=== PATIENT | female | born 1985 | race Asian ===

== ENCOUNTER 2017-07-14 13:43 | Emergency (ER) | payer OTHER, SELFPAY ==
[~2017-07-14] VITALS: Ht 152.4 cm; Wt 54.4 kg
[~2017-07-14 13:43] MED LIST: MACROBID100 MG ORAL; NKM
[2017-07-14 14:48] VITALS: BP 124/86
--- NOTE | 2017-07-14 15:11 | Emergency Room Report ---
History of Present Illness General Chief Complaint: Upper Extremity Injury Source: Patient Present Illness HPI 31-year-old female presents emergency department complaining of continued 6/10 in severity pain to the posterior right elbow after hitting elbow on a door almost 3 weeks ago. Patient reports pain is exacerbated upon movement and ADLs. Patient denies erythema, increased temperature palpation, open wounds, fevers, chills or previous injury to this extremity. Denies numbness tingling or loss of sensation or gross motor movements of the extremities, incontinence of bowel or bladder. Denies CP, Palpitations, LOC, AMS, dizziness, Changes in Vision, Sensation, paresthesias, or a sudden severe headache. Allergies: Coded Allergies: No Known Allergies (Unverified , 05/20/14) Patient History Past Medical History: see triage record Past Surgical History: none Pertinent Family History: none Now: No Reviewed Nursing Documentation: PMH: Agreed, PSxH: Agreed Nursing Documentation-PMH Past Medical History: No Stated History Review of Systems All Other Systems: negative except mentioned in HPI Physical Exam Vital Signs Date Time Temp Pulse Resp B/P (MAP) Pulse Ox O2 Delivery O2 Flow Rate FiO2 07/14/17 13:50 98.2 85 16 128/78 99 Room Air Sp02 EP Interpretation: reviewed, normal General Appearance: no apparent distress, alert, GCS 15, non-toxic Head: normocephalic, atraumatic Eyes: bilateral eye normal inspection, bilateral eye PERRL ENT: hearing grossly normal, normal voice Neck: full range of motion Respiratory: lungs clear, normal breath sounds, speaking full sentences Cardiovascular #1: regular rate, rhythm, normal capillary refill Cardiovascular #2: 2+ radial (R), 2+ radial (L) Musculoskeletal: back normal, gait/station normal, normal range of motion, tender - TTP to the lateral right elbow and the brachioradialis area, no swelling, no bruising, no obvious deformity, FROM. Neurologic: alert, oriented x3, responsive, motor strength/tone normal, sensory intact, speech normal Skin: normal color, no rash, warm/dry, well hydrated Medical Decision Making PA Attestation Dr. Wong is my supervising Physician whom patient management has been discussed with. Diagnostic Impression: Primary Impression: Contusion, elbow Qualified Codes: S50.01XA - Contusion of right elbow, initial encounter Additional Impression: Tendonitis ER Course 31-year-old female presents emergency department complaining of continued 6/10 in severity pain to the posterior right elbow after hitting elbow on a door almost 3 weeks ago. Patient reports pain is exacerbated upon movement and ADLs. Patient denies erythema, increased temperature palpation, open wounds, fevers, chills or previous injury to this extremity. Denies numbness tingling or loss of sensation or gross motor movements of the extremities, incontinence of bowel or bladder. Denies CP, Palpitations, LOC, AMS, dizziness, Changes in Vision, Sensation, paresthesias, or a sudden severe headache. Ddx considered but are not limited to Fracture, dislocation, contusion, Sprain/ Strain/Spasm, tendonitis Vital signs: are WNL, pt. is afebrile H&PE are most consistent with musculoskeletal injury will perform imaging to r/ o fractures/dislocations. ORDERS: - X-ray Right elbow. ED INTERVENTIONS: - d/w pt. results of her imaging. d/w pt. conservative treatment, and to follow up with a primary care provider. pt given a list of primary care clinics for follow up. d/w pt. to return to the ED with worsening or new symptoms. - Rommel wrap is applied to the right elbow by invasive cardiovascular technologist, pt. remains NVI. DISCHARGE: At this time pt. is stable for d/c to home. Will provide printed patient care instructions, and any necessary prescriptions. Care plan and follow up instructions have been discussed with the patient prior to discharge. Other X-Ray Diagnostic Results Other X-Ray Diagnostic Results : X-Ray ordered: Right Elbow # of Views/Limited Vs Complete: 3 View Indication: Pain EP Interpretation: Yes VARINDER Xray: Interpretation reviewed, by supervising MD, and agrees with findings. Interpretation: no dislocation, no soft tissue swelling, no fractures Impression: No acute disease Electronically Signed by: Shraddha Pineda PA-C Last Vital Signs Date Time Temp Pulse Resp B/P (MAP) Pulse Ox O2 Delivery O2 Flow Rate FiO2 07/14/17 14:48 98.4 81 14 124/86 100 Room Air Disposition: HOME, SELF-CARE Condition: Stable Scripts Ibuprofen* (MOTRIN*) 600 Mg Tablet 600 MG ORAL THREE TIMES A DAY, #30 TAB 0 Refills Prov: Shraddha Pineda 07/14/17 Patient Instructions: Elbow Contusion Additional Instructions: Take medications as directed. Follow up with a Primary Care Provider in 3-5 days, even if your symptoms have resolved. --Please review list of primary care clinics, if you do not already have a primary care provider Return sooner to ED if new symptoms occur, or current symptoms become worse. - Please note that this Emergency Department Report was dictated using [employer] technology software, occasionally this can lead to erroneous entry secondary to interpretation by the dictation equipment. Shraddha Pineda Jul 14, 2017 15:11
[2017-07-14] MEDS ORDERED: IBUPROFEN600 MG ORAL (15:24)
[2017-07-14 15:36] VITALS: BP 124/86
--- NOTE | 2017-07-14 15:47 | Diagnostic Imaging Report ---
Indications:PAIN Technique: Three or 4 views of the elbow Comparison: None Findings:Acute fractures or dislocations. Normal bony alignment. No joint effusion. Joint spaces are preserved. No radiopaque foreign body Impression:Negative
== END 2017-07-14 15:36 | disposition home or self-care (01) ==
LOC: EMR 15:30
DX: S50.01XA Contusion of right elbow, initial encounter (principal); W22.8XXA Striking against or struck by other objects, initial encounter; Y92.89 Other specified places as the place of occurrence of the external cause; M77.8 Other enthesopathies, not elsewhere classified
CPT/HCPCS: 99283

== ENCOUNTER 2017-08-04 13:42 | Emergency (ER) | payer OTHER ==
[~2017-08-04] VITALS: Ht 152.4 cm; Wt 53.1 kg
[~2017-08-04 13:42] MED LIST changes: +IBUPROFEN600 MG ORAL
[2017-08-04] MEDS ORDERED: NAPROXEN500 M2 ORAL (14:51)
[2017-08-04 14:55] VITALS: BP 127/84
--- NOTE | 2017-08-04 17:42 | Emergency Room Report ---
History of Present Illness General Chief Complaint: Pain Source: Patient Present Illness HPI Patient is a 31-year-old female presenting for right elbow pain. She states that this began approximately one month ago. She was seen in this emergency department 2 weeks prior and had an elbow x-ray which was unremarkable. She is unsure if she ever injured the elbow. She states that she was using Motrin which helped with the pain. She then ran out and pain returned. Pain is now a 7/10 dull ache and does not radiate. Worse with touch and to movement. She denies any numbness or tingling. She denies any other symptoms Allergies: Coded Allergies: No Known Allergies (Unverified , 05/20/14) Patient History Past Medical History: see triage record Pertinent Family History: none Last Menstrual Period: 07/09/17 Now: No Reviewed Nursing Documentation: PMH: Agreed, PSxH: Agreed Nursing Documentation-PMH Past Medical History: No Stated History Review of Systems All Other Systems: negative except mentioned in HPI Physical Exam Vital Signs Date Time Temp Pulse Resp B/P (MAP) Pulse Ox O2 Delivery O2 Flow Rate FiO2 08/04/17 14:06 98.8 93 16 112/78 99 Room Air Sp02 EP Interpretation: reviewed, normal General Appearance: no apparent distress, alert, GCS 15, non-toxic Head: normocephalic, atraumatic Eyes: bilateral eye normal inspection, bilateral eye PERRL Musculoskeletal: normal inspection, normal range of motion, tender - TTP over the R lateral elbow Neurologic: alert, oriented x3, responsive, motor strength/tone normal, sensory intact, speech normal Psychiatric: judgement/insight normal, memory normal, mood/affect normal, no suicidal/homicidal ideation Skin: normal color, no rash, warm/dry, well hydrated Procedures Splinting Splinting : Consent: Verbal Location: R arm Pre-Made Type: sling Splint: Pre-Proc Neuro Vasc Exam: normal Post-Proc Neuro Vasc Exam: normal Patient Tolerated: Well Complications: None Medical Decision Making PA Attestation Dr. Reyes is my supervising physician. Patient management was discussed with my supervising physician Diagnostic Impression: Primary Impression: Elbow pain, right ER Course Patient is a 31-year-old female presenting for right elbow pain. Ddx considered include but not limited to sprain/strain, fracture, contusion PE: NAD Right elbow: Full active range of motion is intact. No deformity. No edema. There is tenderness to palpation over the lateral aspect of the proximal radius. Previous x-ray of the elbow was unremarkable. A sling was placed and the patient is given prescription for naproxen. She will followup with her primary doctor. ER precautions are given Last Vital Signs Date Time Temp Pulse Resp B/P (MAP) Pulse Ox O2 Delivery O2 Flow Rate FiO2 08/04/17 14:55 98.4 77 18 127/84 100 Room Air Status: improved Disposition: HOME, SELF-CARE Condition: Improved Scripts Naproxen* (NAPROXEN*) 500 Mg Tablet 500 MG ORAL TWICE A WEEK, #30 TAB 0 Refills Prov: MEAGAN NUNEZ 08/04/17 Patient Instructions: Doronusion, RICE for Routine Care of Injuries Additional Instructions: I discussed my findings with the patient. All questions and concerns have been answered. Treatment and medication compliance have been addressed. I advised the patient that they need to follow up with PMD in 3-5 days. Return to ED if pain remains or worsens, numbness or tingling occurs, new rash is noticed, fever is noticed, or if needed for any reason. Patient verbalized understanding of discharge instructions. MEAGAN NUNEZ Aug 04, 2017 17:42
== END 2017-08-04 14:55 | disposition home or self-care (01) ==
LOC: EMR 14:20
DX: M25.521 Pain in right elbow (principal)
CPT/HCPCS: 29240; 99283

== ENCOUNTER 2018-03-06 15:06 | Emergency (ER) | payer MEDICAID, OTHER ==
[~2018-03-06] VITALS: Ht 152.4 cm; Wt 51.3 kg
[~2018-03-06 15:06] MED LIST changes: +NAPROXEN500 M2 ORAL
[2018-03-06] MEDS ORDERED: Acetaminophen 500mg (ES) tab ORAL ONE (15:45)
[2018-03-06 15:49] LABS: APPEARANCE,URINE CLEAR; BILIRUBIN, URINE NEGATIVE (NEGATIVE); COLOR,URINE PALE YELLOW; GLUCOSE, URINE (UA) NEGATIVE (NEGATIVE); KETONES,URINE NEGATIVE (NEGATIVE); LEUKOCYTE ESTERASE ,URINE 2+ (NEGATIVE); NITRITE,URINE NEGATIVE (NEGATIVE); PH,URINE 6 (4.5-8.0); PROTEIN,URINE NEGATIVE (NEGATIVE); UROBILINOGEN,URINE NORMAL MG/DL (0.0-1.0)
--- NOTE | 2018-03-06 15:56 | Emergency Room Report ---
History of Present Illness General Chief Complaint: Vaginal Source: Patient Present Illness HPI 32-year-old female patient presents to ER complaining of vaginal bleeding intermittently for the past 3 weeks.. Reports her last menstrual period was on February 06, states that one week after her last menstrual she began bleeding intermittently for a week, states it then stopped for a week and then began again 1 week ago. Denies passages clots. Denies hematuria or dysuria. Denies discharge or rash. Denies abdominal pain or vomiting. Denies fever, chest pain , shortness of breath. Denies diarrhea. Reports that she was previously on Depo shot provided to her in November. Reports not on any control medications since that time. Reports sexually active with her boyfriend, denies concern for STI. patient unsure of status. denies syncope. , reports had 3 abortions, reports 1 full term without complications. Denies trauma. Complains of intermittent back pain during this time. Allergies: Coded Allergies: No Known Allergies (Unverified , 05/20/14) Patient History Past Medical History: see triage record Last Menstrual Period: FEBRUARY 06 Reviewed Nursing Documentation: PMH: Agreed; PSxH: Agreed Nursing Documentation-PMH Past Medical History: No Stated History Review of Systems All Other Systems: negative except mentioned in HPI Physical Exam Vital Signs Date Time Temp Pulse Resp B/P (MAP) Pulse Ox O2 Delivery O2 Flow Rate FiO2 03/06/18 15:16 98.7 83 18 118/83 98 Room Air 98.8 Sp02 EP Interpretation: reviewed, normal General Appearance: well appearing, no apparent distress, alert, GCS 15, non- toxic Head: normocephalic, atraumatic Eyes: bilateral eye normal inspection, bilateral eye PERRL ENT: hearing grossly normal, normal pharynx, no angioedema, normal voice, uvula midline, moist mucus membranes Neck: full range of motion Respiratory: lungs clear, normal breath sounds, no rhonchi, no respiratory distress, no accessory muscle use, no wheezing, speaking full sentences Cardiovascular #1: regular rate, rhythm, no edema Gastrointestinal: non tender, soft, no mass, non-distended, no guarding, no rebound Genitourinary: no CVA tenderness, deferred Musculoskeletal: back normal, digits/nails normal, gait/station normal, normal range of motion, non-tender Neurologic: alert, oriented x3, responsive, motor strength/tone normal, sensory intact Psychiatric: mood/affect normal Skin: no rash Medical Decision Making PA Attestation Dr. Cleary is my supervising Physician whom patient management has been discussed with. Diagnostic Impression: Primary Impression: Dysfunctional uterine bleeding Additional Impression: UTI (urinary tract infection) ER Course Pt presents to ED c/o vaginal bleeding. DDX considered but are not limited to threatened , incomplete , , fibroids, UTI, endometriosis, dysfunctional uterine bleeding, torsion , ovarian cyst. VITAL SIGNS are WNL, patient is afebrile Ordered CBC, CMP, Type and Screen, UA, UCG, bHCG, IV NS and pelvic US. Tylenol for pain control. ER COURSE: Patient resting comfortably, in no acute distress, nontoxic appearing. Patient reports pain symptoms resolved since onset. CBC and CMP unremarkable, hemoglobin within normal limits, no signs or symptoms of anemia, patient hemodynamically stable. UA results doesn't for leukocyte esterase and WBCs, will treat for UTI. Back pain likely related to UTI. Urine negative BetaHCG <1. Patient not . Pelvic ultrasound normal per hearing health technician, unremarkable per radiologist. No fibroids or other underlying pathology. Bleeding possibly related to recent discontinuation of control medication other underlying etiology, needs further evaluation as outpatient. Needs follow-up with [facility] TELE[facility]ION [facility]AL CLERK for further treatment and referral. Discuss use of oral contraceptive medications. patient is stable for outpatient follow-up and evaluation. Patient with contact information for free or low cost health clinics. Informed patient to take Tylenol only for pain symptoms, do not take Motrin/ Ibuprofen. F/u with OBGYN in 48 hours. DISCHARGE: -Rx provided for Tylenol for pain -Rx provided for Keflex At this time pt. is stable for d/c to home. At this time patient is resting comfortably, in no acute distress, nontoxic appearing, smiling and talking without difficulty. Will provide printed patient care instructions, and any necessary prescriptions. Patient instructed to follow with OBGYN for further treatment and referral as needed. Care plan and follow up instructions have been discussed with the patient prior to discharge. Patient reports understanding and agreement to treatment plan. Patient questions asked and answered. ER precautions given, patient instructed to return to ER immediately for any new or worsening of symptoms. - Please note that this Emergency Department Report was dictated using [email or web address] technology software, occasionally this can lead to erroneous entry secondary to interpretation by the dictation equipment. Labs Test 03/06/18 15:30 03/06/18 16:10 Urine Color Pale yellow Urine Appearance Clear Urine pH 6 (4.5-8.0) Urine Specific [place] 1.020 (1.005-1.035) Urine Protein Negative (NEGATIVE) Urine Glucose (UA) Negative (NEGATIVE) Urine Ketones Negative (NEGATIVE) Urine Occult Blood 3+ (NEGATIVE) Urine Nitrite Negative (NEGATIVE) Urine Bilirubin Negative (NEGATIVE) Urine Urobilinogen Normal MG/DL (0.0-1.0) Urine Leukocyte Esterase 2+ (NEGATIVE) Urine RBC 2-4 /HPF (0 - 2) Urine WBC 5-10 /HPF (0 - 2) Urine Squamous Epithelial Cells Moderate /LPF (NONE/OCC) Urine Bacteria Few /HPF (NONE) Urine HCG, Qualitative Negative (NEGATIVE) White Blood Count 7.8 K/UL (4.8-10.8) Red Blood Count 4.69 M/UL (4.20-5.40) Hemoglobin 14.3 G/DL (12.0-16.0) Hematocrit 42.6 % (37.0-47.0) Mean Corpuscular Volume 91 FL (80-99) Mean Corpuscular Hemoglobin 30.4 PG (27.0-31.0) Mean Corpuscular Hemoglobin Concent 33.5 G/DL (32.0-36.0) Red Cell Distribution Width 11.4 % (11.6-14.8) Platelet Count 200 K/UL (150-450) Mean Platelet Volume 7.3 FL (6.5-10.1) Neutrophils (%) (Auto) 60.1 % (45.0-75.0) Lymphocytes (%) (Auto) 30.7 % (20.0-45.0) Monocytes (%) (Auto) 6.6 % (1.0-10.0) Eosinophils (%) (Auto) 1.6 % (0.0-3.0) Basophils (%) (Auto) 0.9 % (0.0-2.0) Sodium Level 141 MMOL/L (136-145) Potassium Level 4.2 MMOL/L (3.5-5.1) Chloride Level 104 MMOL/L (98-107) Carbon Dioxide Level 28 MMOL/L (21-32) Anion Gap 9 mmol/L (5-15) Blood Urea Nitrogen 13 mg/dL (7-18) Creatinine 0.7 MG/DL (0.55-1.30) Estimat Glomerular Filtration Rate > 60 mL/min (>60) Glucose Level 99 MG/DL (74-106) Calcium Level 9.2 MG/DL (8.5-10.1) Total Bilirubin 0.3 MG/DL (0.2-1.0) Aspartate Amino Transf (AST/SGOT) 18 U/L (15-37) Alanine Aminotransferase (ALT/SGPT) 25 U/L (12-78) Alkaline Phosphatase 74 U/L (46-116) Total Protein 7.9 G/DL (6.4-8.2) Albumin 4.1 G/DL (3.4-5.0) Globulin 3.8 g/dL Albumin/Globulin Ratio 1.1 (1.0-2.7) Lipase 166 U/L (73-393) Human Chorionic Gonadotropin, Quant < 1 mIU/mL (1-6) CT/MRI/US Diagnostic Results CT/MRI/US Diagnostic Results : Imaging Test Ordered: Pelvic US Impression Hypoechoic area in the anterior myometrium, of uncertain significance but probably representing some focal fluid Otherwise unremarkable Last Vital Signs Date Time Temp Pulse Resp B/P (MAP) Pulse Ox O2 Delivery O2 Flow Rate FiO2 03/06/18 15:16 98.7 83 18 118/83 98 Room Air 98.8 Disposition: HOME, SELF-CARE Condition: Stable Scripts Acetaminophen* (TYLENOL EXTRA STRENGTH*) 500 Mg Tablet 500 MG ORAL Q8H PRN for Prn Headache/Temp > 101, #30 TAB 0 Refills Prov: Mahamed Landry P.A. 03/06/18 Cephalexin* (KEFLEX*) 500 Mg Capsule 500 MG ORAL EVERY 12 HOURS, #14 CAP 0 Refills Prov: Mahamed Landry P.A. 03/06/18 Patient Instructions: Dysfunctional Uterine Bleeding, Urinary Tract Infection, [id number] Additional Instructions: Followup with OBGYN in 1-2 days. Take medications as directed. Drink plenty of fluids. Patient questions asked and answered. ER precautions given, patient instructed to return to ER immediately for any new or worsening of symptoms including but not limited to chest pain, SOB, intractable vomiting, profuse vaginal bleeding, abdominal pain. Mahamed Landry Mar 06, 2018 15:56
[2018-03-06 16:30] VITALS: BP 118/83
[2018-03-06 16:36] LABS: BASOPHILS % (AUTO) 0.9 % (0.0-2.0); EOSINOPHILS % (AUTO) 1.6 % (0.0-3.0); HEMATOCRIT 42.6 % (37.0-47.0); HEMOGLOBIN 14.3 G/DL (12.0-16.0); LYMPHOCYTES % (AUTO) 30.7 % (20.0-45.0); MEAN CORPUSCULAR VOLUME 91 FL (80-99); MONOCYTES % (AUTO) 6.6 % (1.0-10.0); NEUTROPHILS % (AUTO) 60.1 % (45.0-75.0); PLATELET COUNT 200 K/UL (150-450); RED BLOOD COUNT 4.69 M/UL (4.20-5.40); RED CELL DISTRIBUTION WIDTH 11.4 % (11.6-14.8); WHITE BLOOD COUNT 7.8 K/UL (4.8-10.8)
[2018-03-06 16:42] LABS: ANION GAP 9 mmol/L (5-15); BLOOD UREA NITROGEN 13 mg/dL (7-18); CALCIUM 9.2 MG/DL (8.5-10.1); CARBON DIOXIDE 28 MMOL/L (21-32); CHLORIDE 104 MMOL/L (98-107); CREATININE 0.7 MG/DL (0.55-1.30); POTASSIUM 4.2 MMOL/L (3.5-5.1); SODIUM 141 MMOL/L (136-145)
[2018-03-06 16:47] LABS: ALANINE AMINOTRANSFERASE 25 U/L (12-78); ALBUMIN 4.1 G/DL (3.4-5.0); ALBUMIN/GLOBULIN RATIO 1.1 (1.0-2.7); ALKALINE PHOSPHATASE 74 U/L (46-116); ASPARTATE AMINO TRANSFERASE 18 U/L (15-37); BILIRUBIN,TOTAL 0.3 MG/DL (0.2-1.0)
[2018-03-06] MEDS ORDERED: TYLENOL EXTRA500 MG ORAL (17:29)
[2018-03-06] MEDS ORDERED: CEPHALEXIN500 MG ORAL (17:29)
--- NOTE | 2018-03-06 18:07 | Diagnostic Imaging Report ---
Indication: Pelvic pain. Likely vaginal bleeding. Negative test Technique: Transabdominal and transvaginal images Comparison: 06/09/2014 Findings: Uterus measures 11.5 cm in length by 3.8 cm AP. Endometrium measures 8 mm thick. Unusual linear hypoechoic area seen in the anterior aspect of the uterine myometrium, fairly superficial. No other myometrial abnormality. Right ovary measures 3.3 cm in length. Left ovary measures 3.2 cm in length. No adnexal mass. No free cul-de-sac fluid Impression: Hypoechoic area in the anterior myometrium, of uncertain significance but probably representing some focal fluid Otherwise unremarkable
[2018-03-06 19:17] VITALS: BP 118/83
== END 2018-03-06 18:30 | disposition home or self-care (01) ==
LOC: EMR 16:01
DX: N93.8 Other specified abnormal uterine and vaginal bleeding (principal); N39.0 Urinary tract infection, site not specified
CPT/HCPCS: 36415; 76856; 80053; 81003; 81025; 83690; 84702; 85025; 96360; 99284

== ENCOUNTER 2018-11-23 15:27 | Emergency (ER) | payer MEDICAID, OTHER ==
[~2018-11-23] VITALS: Ht 152.4 cm; Wt 52.2 kg
[~2018-11-23 15:27] MED LIST changes: +CEPHALEXIN500 MG ORAL; +TYLENOL EXTRA500 MG ORAL
[2018-11-23] MEDS ORDERED: NKM (15:36)
--- NOTE | 2018-11-23 16:24 | Emergency Room Report ---
History of Present Illness General Chief Complaint: Lower Extremity Injury Source: Patient Present Illness HPI 32-year-old female presents emergency department complaining of 7 out of 10 in severity localized right knee pain 10 days. Patient also reports some clicking with bending of her knee. Patient denies appreciable trauma or fall. Patient states that she has a 2-year-old baby that she is constantly tearing and states that she lives up several flights of stairs. Patient states that she did mention her symptoms to her doctor who stated that maybe her symptoms may be attributed to recently receiving control injection approximately 3 months ago. Patient denies erythema, swelling, fevers, chills or history of STI. Allergies: Coded Allergies: No Known Allergies (Unverified , 05/20/14) Patient History Past Medical History: see triage record Past Surgical History: none Pertinent Family History: none Now: No Reviewed Nursing Documentation: PMH: Agreed; PSxH: Agreed Nursing Documentation-PMH Past Medical History: No Stated History Review of Systems All Other Systems: negative except mentioned in HPI Physical Exam Vital Signs Date Time Temp Pulse Resp B/P (MAP) Pulse Ox O2 Delivery O2 Flow Rate FiO2 11/23/18 15:31 98.4 97 16 132/90 98 Room Air Sp02 EP Interpretation: reviewed, normal General Appearance: no apparent distress, alert, GCS 15, non-toxic Head: normocephalic, atraumatic Eyes: bilateral eye normal inspection, bilateral eye PERRL ENT: hearing grossly normal, normal voice Neck: full range of motion Respiratory: lungs clear, normal breath sounds, speaking full sentences Cardiovascular #1: regular rate, rhythm, normal capillary refill Cardiovascular #2: 2+ dorsalis pedis (R) Musculoskeletal: back normal, gait/station normal, normal range of motion, tender - mild anteriomedial ttp, palpable clicking with flexion, no increased instability noted on exam. no erythema, no swelling, no warmth. Neurologic: alert, oriented x3, responsive, motor strength/tone normal, sensory intact, speech normal, grossly normal Psychiatric: judgement/insight normal Skin: normal color, no rash, warm/dry, well hydrated Lymphatic: no adenopathy Medical Decision Making PA Attestation Dr. García is my supervising Physician whom patient management has been discussed with. Diagnostic Impression: Primary Impression: Knee pain, right Qualified Codes: M25.561 - Pain in right knee Additional Impression: Overuse syndrome ER Course 32-year-old female presents emergency department complaining of 7 out of 10 in severity localized right knee pain 10 days. Patient also reports some clicking with bending of her knee. Patient denies appreciable trauma or fall. Patient states that she has a 2-year-old baby that she is constantly tearing and states that she lives up several flights of stairs. Patient states that she did mention her symptoms to her doctor who stated that maybe her symptoms may be attributed to recently receiving control injection approximately 3 months ago. Patient denies erythema, swelling, fevers, chills or history of STI. Ddx considered but are not limited to Fracture, dislocation, contusion, septic joint, pseudo gout, gout, cellulitis, effusion , Sprain/Strain/Spasm, ligamental injury just to name a few. Vital signs: are WNL, pt. is afebrile H&PE are most consistent with knee strain/ overuse. ORDERS: X-ray Right knee complete 3 view - negative for fx, Dislocation, or significant soft tissue injury ED INTERVENTIONS: - Rommel wrap applied by certified scrub tech. -I do not identify an emergent condition at this time. With current presentation , pt. is stable for close outpatient follow up and conservative treatment. D/ w pt. to return promptly to ED with worsening or new symptoms.- Pt. verbalizes' understanding and agreement with proposed treatment plan.proposed treatment plan. DISCHARGE: At this time pt. is stable for d/c to home. Will provide printed patient care instructions, and any necessary prescriptions. Care plan and follow up instructions have been discussed with the patient prior to discharge. Other X-Ray Diagnostic Results Other X-Ray Diagnostic Results : X-Ray ordered: Right Knee # of Views/Limited Vs Complete: 3 View Indication: Pain EP Interpretation: Yes VARINDER Xray: Interpretation reviewed, by supervising MD, and agrees with findings. Interpretation: no dislocation, no soft tissue swelling, no fractures Impression: No acute disease Electronically Signed by: Shraddha Pineda PA-C Last Vital Signs Date Time Temp Pulse Resp B/P (MAP) Pulse Ox O2 Delivery O2 Flow Rate FiO2 11/23/18 15:31 98.4 97 16 132/90 98 Room Air Disposition: HOME, SELF-CARE Condition: Stable Patient Instructions: Knee Sprain Additional Instructions: Take medications as directed. Follow up with an BEE BREEDER in 3-5 days, even if your symptoms have resolved. If symptoms persist MRI may be required at the discretion of your PCP or Ortho Specialist. --Please review list of primary care clinics, if you do not already have a primary care provider who can give you an Orthopedic Referral. Return sooner to ED if new symptoms occur, or current symptoms become worse. - Please note that this Emergency Department Report was dictated using [employer] technology software, occasionally this can lead to erroneous entry secondary to interpretation by the dictation equipment. Shraddha Pineda Nov 23, 2018 16:24
[2018-11-23] MEDS ORDERED: NAPROXEN500 M1 ORAL (16:37)
[2018-11-23 16:54] VITALS: BP 132/90
--- NOTE | 2018-11-23 16:54 | Diagnostic Imaging Report ---
Indication: Right knee pain Technique: 3 views of the right knee Comparison: None Findings: No suprapatellar effusion. No acute fractures. No dislocations. Joint spaces are preserved Impression: Negative
--- NOTE | 2018-11-23 16:55 | NUR ---
ER DISCHARGE NOTE:colten wrp was placed on right knee Patient is cleared to be discharged per ERMD, pt is aox4, on room air, with stable vital signs. pt was given dc and prescription instructions, pt was able to verbalize understanding, pt is able to ambulate with steady gait. pt took all belongings.
== END 2018-11-23 17:00 | disposition home or self-care (01) ==
LOC: EMR 16:14
DX: M25.561 Pain in right knee (principal); M70.80 Other soft tissue disorders related to use, overuse and pressure of unspecified site
CPT/HCPCS: 99283

== ENCOUNTER 2019-05-26 14:16 | Emergency (ER) | payer MEDICAID ==
[~2019-05-26] VITALS: Ht 152.4 cm; Wt 47.6 kg
[~2019-05-26 14:16] MED LIST changes: +NAPROXEN500 M1 ORAL
[2019-05-26 14:32] VITALS: BP 126/76
--- NOTE | 2019-05-26 14:33 | NUR ---
ED Nurse Note:pt. came with small pink eash on bilateral wrists
--- NOTE | 2019-05-26 14:53 | Emergency Room Report ---
History of Present Illness General Chief Complaint: Skin Rash/Abscess Source: Patient Present Illness HPI 33 YO Female presents to the ED c/o itchy rash on the bilateral UE's progressive x 1 week. pt. denies pain. reports circular patches. Never had symptoms like this before. Pt. denies fevers, chills or swollen tender lymph nodes. Denies lesions/rashes elsewhere on the body. Denies new medications or body washes or creams. Denies swelling of the lips, tongue , throat or airway. Denies wheezing, or shortness of breath. Denies recent travel, recent illness or ill contacts. denies blisters, oral lesions, or sloughing of the skin. Allergies: Coded Allergies: No Known Allergies (Unverified , 05/20/14) Patient History Past Medical History: see triage record Past Surgical History: none Pertinent Family History: none Last Menstrual Period: 05/17/19 Now: No : 4 Para: 1 Reviewed Nursing Documentation: PMH: Agreed; PSxH: Agreed Nursing Documentation-PMH Past Medical History: No Stated History Review of Systems All Other Systems: negative except mentioned in HPI Physical Exam Vital Signs Date Time Temp Pulse Resp B/P (MAP) Pulse Ox O2 Delivery O2 Flow Rate FiO2 05/26/19 14:21 98.4 79 18 126/76 (93) 98 Room Air Sp02 EP Interpretation: reviewed, normal General Appearance: no apparent distress, alert, GCS 15, non-toxic Head: normocephalic, atraumatic Eyes: bilateral eye normal inspection, bilateral eye PERRL ENT: hearing grossly normal, no angioedema, normal voice, other - no stridor Neck: full range of motion Respiratory: chest non-tender, lungs clear, normal breath sounds, no wheezing, speaking full sentences Cardiovascular #1: regular rate, rhythm Musculoskeletal: back normal, gait/station normal, normal range of motion, non- tender Neurologic: alert, oriented x3, responsive, motor strength/tone normal, sensory intact, speech normal, grossly normal Psychiatric: judgement/insight normal Skin: rash - several erythematous and annular plaques scattered on the bilateral UE's some with a faint silvery appearance. no central clearing, negative niklosky, no blisters, no vesicles. Lymphatic: no adenopathy Medical Decision Making PA Attestation Dr. Acuña is my supervising Physician whom patient management has been discussed with. Diagnostic Impression: Primary Impression: Rash and other nonspecific skin eruption ER Course 33 YO Female presents to the ED c/o itchy rash on the bilateral UE's progressive x 1 week. pt. denies pain. reports circular patches. Never had symptoms like this before. Pt. denies fevers, chills or swollen tender lymph nodes. Denies lesions/rashes elsewhere on the body. Denies new medications or body washes or creams. Denies swelling of the lips, tongue , throat or airway. Denies wheezing, or shortness of breath. Denies recent travel, recent illness or ill contacts. denies blisters, oral lesions, or sloughing of the skin Ddx considered but are not limited to cellulitis, scabies, shingles, varicella, dermatitis, urticaria, eczema, tinea, viral exanthem, SJS Vital signs: are WNL, pt. is afebrile H&PE are most consistent with unspecified rash, possible psoriatic etiology. will treat conservatively. No PE signs to suggest acute impending airway compromise, severe systemic reaction or anaphylaxis. ORDERS: none required at this time, the diagnosis is clinical ED INTERVENTIONS: None required at this time. DISCHARGE: At this time pt. is stable for d/c to home. Will provide printed patient care instructions, and any necessary prescriptions. Care plan and follow up instructions have been discussed with the patient prior to discharge. Last Vital Signs Date Time Temp Pulse Resp B/P (MAP) Pulse Ox O2 Delivery O2 Flow Rate FiO2 05/26/19 14:32 98.4 71 18 126/76 98 Room Air Disposition: HOME, SELF-CARE Condition: Stable Scripts Clotrimazole* (LOTRIMIN*) 15 Gm Cream..g. 1 APPLIC TOPIC TWICE A DAY, #15 GM Prov: Shraddha Pineda 05/26/19 Triamcinolone Acet (Triamcinolone Acetonide) 15 Gm Cream..g. 1 APPLIC APPLIC BID, #15 GM Prov: Shraddha Pineda 05/26/19 Patient Instructions: Rash Additional Instructions: Take medications as directed. Follow up with a Primary Care Provider in 3-5 days for DERMATOLOGY REFERRAL , even if your symptoms have resolved. --Please review list of primary care clinics, if you do not already have a primary care provider Return sooner to ED if new symptoms occur, or current symptoms become worse. - Please note that this Emergency Department Report was dictated using [employer] dancer technology software, occasionally this can lead to erroneous entry secondary to interpretation by the dictation equipment. Shraddha Pineda May 26, 2019 14:53
[2019-05-26] MEDS ORDERED: CLOTRIMAZOLE15 GM TOPIC (14:55)
[2019-05-26] MEDS ORDERED: KENALOG 0.025%15 GM APPLIC (14:55)
--- NOTE | 2019-05-26 15:00 | NUR ---
ER DISCHARGE NOTE: Patient is cleared to be discharged per ERMD, pt is aox4, on room air, with stable vital signs. pt was given dc and prescription instructions, pt was able to verbalize understanding, pt is able to ambulate with steady gait. pt took all belongings.
[2019-05-26 15:51] VITALS: BP 126/76
== END 2019-05-26 15:00 | disposition home or self-care (01) ==
LOC: EMR 14:54
DX: R21 Rash and other nonspecific skin eruption (principal)
CPT/HCPCS: 99282

== ENCOUNTER 2019-12-21 21:52 | Emergency (ER) | payer MEDICAID ==
[~2019-12-21] VITALS: Ht 152.4 cm; Wt 53.5 kg
[~2019-12-21 21:52] MED LIST changes: +CLOTRIMAZOLE15 GM TOPIC; +KENALOG 0.025%15 GM APPLIC
--- NOTE | 2019-12-21 22:00 | NUR ---
ED Nurse Note: Pt ambulated to ED from home c/o CP this morning, pt states she feels palpitations and sob, it comes intermittently. PT is A&Ox4, denies hx, VSS. EKG done, ERMD at bedside, denies pain at this time.
[2019-12-21 22:30] VITALS: BP 134/78
--- NOTE | 2019-12-21 22:45 | Emergency Room Report ---
History of Present Illness General Chief Complaint: Palpitations Source: Patient Present Illness HPI Patient is a 34-year-old female denies any significant past medical history who presents to the ER complaining of palpitations. Patient states that she had an episode of palpitations this morning while at work. 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 She states that she called 911 and that EMS arrived and advised her to drink some water. Patient states that she had palpitations again this evening which prompted her to come to the emergency room. Patient denies any chest pain. She denies any recent travel. She denies any lower extremity pain or edema. Patient states that when she gets the palpitations it is associated with some shortness of breath. Patient states that she has been anxious over the Covid-19 pandemic. Patient denies any family history of early cardiovascular disease. She denies any fever or chills. Allergies: Coded Allergies: No Known Allergies (Unverified , 05/20/14) COVID-19 Screening Contact w/high risk pt: No Recent Travel to affected area: No Experienced COVID-19 symptoms?: No Patient History Past Medical History: none Past Surgical History: none Social History: Denies: smoking, alcohol use, drug use Last Menstrual Period: 2 months ago Nursing Documentation-[facility] Past Medical History: No Stated History Review of Systems All Other Systems: negative except mentioned in HPI Physical Exam Vital Signs Date Time Temp Pulse Resp B/P (MAP) Pulse Ox O2 Delivery O2 Flow Rate FiO2 12/21/19 21:55 98.2 86 18 134/78 (96) 100 Room Air Sp02 EP Interpretation: reviewed, normal General Appearance: no apparent distress, alert, GCS 15, non-toxic Head: normocephalic, atraumatic Eyes: bilateral eye normal inspection, bilateral eye PERRL ENT: hearing grossly normal, normal pharynx, no angioedema, normal voice Neck: full range of motion, supple/symm/no masses Respiratory: chest non-tender, lungs clear, normal breath sounds, speaking full sentences Cardiovascular #1: regular rate, rhythm, no edema Cardiovascular #2: 2+ carotid (R), 2+ carotid (L), 2+ radial (R), 2+ radial (L) , 2+ dorsalis pedis (R), 2+ dorsalis pedis (L) Gastrointestinal: normal bowel sounds, non tender, soft, non-distended, no guarding, no rebound Rectal: deferred Genitourinary: normal inspection, no CVA tenderness Musculoskeletal: back normal, normal range of motion, calf tenderness, gait/ station normal, non-tender Neurologic: alert, motor strength/tone normal, oriented x3, sensory intact, responsive, speech normal Psychiatric: judgement/insight normal, memory normal, mood/affect normal, no suicidal/homicidal ideation Skin: no rash Lymphatic: no adenopathy Medical Decision Making Diagnostic Impression: Primary Impression: Palpitations ER Course Patient presents with 1 day of intermittent palpitations. Patient's lab work demonstrates no significant acute abnormalities. Patient has been in normal sinus rhythm throughout her ER stay. Patient advised to follow-up with her primary care physician for further treatment and evaluation. Specifically to obtain either a Holter monitor or CO patch for further testing of her palpitations. After discussing risks and benefits of further diagnostics, treatment plans, as well as indications for and risks of admission, the patient is agreeable to being discharged home. I have explained that their evaluation and treatment in the emergency department today is an important step towards them achieving better health but that their evaluation today is not intended to replace further evaluation and treatment by a physician in their local clinic. I have explained that while the current findings suggest no immediate life threatening emergency they will require further evaluation and treatment by a physician of their choice in their area. They understand that it will be necessary for them to review the final reports of their ED visit with their clinic physician. We have reviewed indications for return to the Emergency Department. I have explained that additional time may need to pass and/or additional testing as an outpatient may be necessary before a definitive diagnosis can be made. They tell me they are willing to follow up as instructed within the timeframe I recommend. They appear to understand what we discussed. Additionally they understand that if they are unable to be seen by an outpatient physician they are welcome, and in fact should, return to the Emergency Department for a repeat evaluation. The patient is stable at time of discharge. EKG Diagnostic Results EKG Time: 22:10 EP Interpretation: MD Miko Rate: normal Rhythm: NSR ST Segments: no acute changes ASA given to the pt in ED: No Rhythm Strip Diag. Results Rhythm Strip Time: 22:44 EP Interpretation: yes - MD Miko Rate: 90 Rhythm: NSR, no PVC's, no ectopy Chest X-Ray Diagnostic Results Chest X-Ray Diagnostic Results : Chest X-Ray Ordered: Yes # of Views/Limited/Complete: 1 View Indication: Other - palpitation EP Interpretation: Yes - MD Miko Interpretation: no consolidation, no effusion, no pneumothorax, no acute cardiopulmonary disease Impression: No acute disease Electronically Signed by: MD Miko Last Vital Signs Date Time Temp Pulse Resp B/P (MAP) Pulse Ox O2 Delivery O2 Flow Rate FiO2 12/21/19 22:30 98.2 88 18 134/78 100 Room Air Disposition: HOME, SELF-CARE Condition: Stable Additional Instructions: The patient was provided with discharge instructions, notified to follow-up with a primary care doctor and or specialist in the next 24-48 hours, and to return to the ED if they have worsening of their symptoms. Please note that this report is being documented using [employer] technology. This can lead to erroneous entry secondary to incorrect interpretation by the dictating instrument. Divya Crouch M.D. Dec 21, 2019 22:45
[2019-12-21 22:57] LABS: BASOPHILS % (AUTO) 0.5 % (0.0-2.0); EOSINOPHILS % (AUTO) 1.1 % (0.0-3.0); HEMATOCRIT 34.6 % (37.0-47.0); HEMOGLOBIN 11.1 G/DL (12.0-16.0); MEAN CORPUSCULAR VOLUME 66 FL (80-99); MONOCYTES % (AUTO) 7.4 % (1.0-10.0); PLATELET COUNT 281 K/UL (150-450); RED CELL DISTRIBUTION WIDTH 17.1 % (11.6-14.8); WHITE BLOOD COUNT 9.6 K/UL (4.8-10.8)
[2019-12-21 23:05] LABS: ANION GAP 7 mmol/L (5-15); BLOOD UREA NITROGEN 18 mg/dL (7-18); CALCIUM 9.5 MG/DL (8.5-10.1); CARBON DIOXIDE 27 MMOL/L (21-32); CHLORIDE 104 MMOL/L (98-107); CREATININE 0.8 MG/DL (0.55-1.30); POTASSIUM 3.7 MMOL/L (3.5-5.1); SODIUM 138 MMOL/L (136-145)
[2019-12-21 23:18] LABS: ALANINE AMINOTRANSFERASE 19 U/L (12-78); ALBUMIN 4.1 G/DL (3.4-5.0); ALBUMIN/GLOBULIN RATIO 1.1 (1.0-2.7); ALKALINE PHOSPHATASE 53 U/L (46-116); ASPARTATE AMINO TRANSFERASE 17 U/L (15-37); BILIRUBIN,TOTAL 0.3 MG/DL (0.2-1.0)
[2019-12-22] VITALS: BP 134/78
--- NOTE | 2019-12-22 | NUR ---
ER DISCHARGE NOTE: Patient is cleared to be discharged per ERMD, pt is aox4, on room air, with stable vital signs. pt was given dc and prescription instructions, pt was able to verbalize understanding, pt id band and iv site removed without complications. pt is able to ambulate with steady gait. pt took all belongings.
--- NOTE | 2019-12-22 09:45 | Diagnostic Imaging Report ---
Indication: Chest pain Technique: One view of the chest Comparison: none Findings: Lungs and pleural spaces are clear. Heart size is normal. Impression: No acute process
== END 2019-12-22 | disposition home or self-care (01) ==
LOC: EMR 22:35
DX: R00.2 Palpitations (principal); R06.02 Shortness of breath
CPT/HCPCS: 36415; 71045; 80053; 80307; 81025; 83735; 84439; 84443; 84484; 85025; 85379; 93005; 96360; J7030; Z7502; 99284

== ENCOUNTER 2020-04-13 15:11 | Emergency (ER) | payer MEDICAID ==
[~2020-04-13] VITALS: Ht 154.9 cm; Wt 52.2 kg
--- NOTE | 2020-04-13 16:07 | Emergency Room Report ---
History of Present Illness General Chief Complaint: General Complaint Source: Patient Present Illness HPI 34-year-old female presents to the emergency department complaining of palpitations daily x1 month. Patient denies pain. Patient reports tightness and difficulty breathing/taking of breath. Patient reports that her symptoms last approximately 2 to 3 minutes. Patient reports her symptoms are usually exacerbated with strenuous activities. She denies cardiac history but states she has had episodes of palpitations before in the past which caused her to go to the ER for evaluation. Patient reports that her symptoms are different than in the past. She denies shakiness, dizziness, syncope, significant changes in weight, diaphoresis. She denies fevers or chills. She does report familial cardiac history with early onset at young ages. She denies or suspicion of . She denies abdominal pain or tenderness. She denies cough, sputum production, sore throat, wheezing, history of asthma or smoking history. Allergies: Coded Allergies: No Known Allergies (Unverified , 05/20/14) COVID-19 Screening Contact w/high risk pt: No Recent Travel to affected area: No Experienced COVID-19 symptoms?: No COVID-19 Testing performed [place] JUSTICE: No Patient History Past Medical History: see triage record Past Surgical History: none Pertinent Family History: none Last Menstrual Period: 03/15/2020 Now: No Reviewed Nursing Documentation: PMH: Agreed; PSxH: Agreed Nursing Documentation-PMH Past Medical History: No Stated History Review of Systems All Other Systems: negative except mentioned in HPI Physical Exam Vital Signs Date Time Temp Pulse Resp B/P (MAP) Pulse Ox O2 Delivery O2 Flow Rate FiO2 04/13/20 15:46 97.9 89 16 117/73 (88) 100 Room Air Sp02 EP Interpretation: reviewed, normal General Appearance: no apparent distress, alert, GCS 15, non-toxic Head: normocephalic, atraumatic Eyes: bilateral eye normal inspection, bilateral eye PERRL ENT: hearing grossly normal, normal voice Neck: full range of motion Respiratory: chest non-tender, lungs clear, normal breath sounds, speaking full sentences Cardiovascular #1: regular rate, rhythm, no edema, normal capillary refill Genitourinary: no CVA tenderness Musculoskeletal: back normal, normal range of motion, gait/station normal, non- tender Neurologic: alert, motor strength/tone normal, oriented x3, sensory intact, responsive, speech normal Psychiatric: judgement/insight normal, mood/affect normal Skin: no rash, normal color Lymphatic: no adenopathy Medical Decision Making PA Attestation Dr. Parker Is my supervising Physician whom patient management has been discussed with. Diagnostic Impression: Primary Impression: Palpitations ER Course 34-year-old female presents to the emergency department complaining of palpitations daily x1 month. Patient denies pain. Patient reports tightness and difficulty breathing/taking of breath. Patient reports that her symptoms last approximately 2 to 3 minutes. Patient reports her symptoms are usually exacerbated with strenuous activities. She denies cardiac history but states she has had episodes of palpitations before in the past which caused her to go to the ER for evaluation. Patient reports that her symptoms are different than in the past. She denies shakiness, dizziness, syncope, significant changes in weight, diaphoresis. She denies fevers or chills. She does report familial cardiac history with early onset at young ages. She denies or suspicion of . She denies abdominal pain or tenderness. She denies cough, sputum production, sore throat, wheezing, history of asthma or smoking history. Ddx considered but are not limited to OR, arrhythmia, hypokalemia, anxiety reaction. Vital signs: are WNL, pt. is afebrile. H&PE are most consistent with [ ] ORDERS: - EKG: [ ] - BMP -cCBC -Troponin -D-Dimer CK -Urine Hcg: ED INTERVENTIONS: PT EDUCATION: DISCHARGE: At this time pt. is stable for d/c to home. Will provide printed patient care instructions, and any necessary prescriptions. Care plan and follow up instructions have been discussed with the patient prior to discharge. Labs Test 04/13/20 16:35 White Blood Count 8.4 K/UL (4.8-10.8) Red Blood Count 5.27 M/UL (4.20-5.40) Hemoglobin 13.3 G/DL (12.0-16.0) Hematocrit 42.5 % (37.0-47.0) Mean Corpuscular Volume 81 FL (80-99) Mean Corpuscular Hemoglobin 25.3 PG (27.0-31.0) Mean Corpuscular Hemoglobin Concent 31.3 G/DL (32.0-36.0) Red Cell Distribution Width 15.9 % (11.6-14.8) Platelet Count 236 K/UL (150-450) Mean Platelet Volume 7.9 FL (6.5-10.1) Neutrophils (%) (Auto) 63.1 % (45.0-75.0) Lymphocytes (%) (Auto) 26.0 % (20.0-45.0) Monocytes (%) (Auto) 9.3 % (1.0-10.0) Eosinophils (%) (Auto) 0.8 % (0.0-3.0) Basophils (%) (Auto) 0.9 % (0.0-2.0) D-Dimer 0.19 mg/L FEU (0.00-0.49) Urine HCG, Qualitative Negative (NEGATIVE) Sodium Level 139 MMOL/L (136-145) Potassium Level 3.7 MMOL/L (3.5-5.1) Chloride Level 103 MMOL/L (98-107) Carbon Dioxide Level 29 MMOL/L (21-32) Anion Gap 8 mmol/L (5-15) Blood Urea Nitrogen 12 mg/dL (7-18) Creatinine 0.8 MG/DL (0.55-1.30) Estimat Glomerular Filtration Rate > 60 mL/min (>60) Glucose Level 74 MG/DL (74-106) Calcium Level 8.9 MG/DL (8.5-10.1) Total Bilirubin 0.7 MG/DL (0.2-1.0) Aspartate Amino Transf (AST/SGOT) 20 U/L (15-37) Alanine Aminotransferase (ALT/SGPT) 24 U/L (12-78) Alkaline Phosphatase 59 U/L (46-116) Troponin I 0.000 ng/mL (0.000-0.056) Total Protein 8.3 G/DL (6.4-8.2) Albumin 4.3 G/DL (3.4-5.0) Globulin 4.0 g/dL Albumin/Globulin Ratio 1.1 (1.0-2.7) EKG Diagnostic Results EP Interpretation: Dr. Parker Rate: normal - 74 NSR Rhythm: NSR ST Segments: no acute changes ASA given to the pt in ED: No PA Scribe Text This Interpretation was scribed by VARINDER Pineda. Last Vital Signs Date Time Temp Pulse Resp B/P (MAP) Pulse Ox O2 Delivery O2 Flow Rate FiO2 04/13/20 15:46 97.9 89 16 117/73 (88) 100 Room Air Status: improved Disposition: HOME, SELF-CARE Condition: Stable Patient Instructions: Palpitations, [id number] Shraddha Pineda Apr 13, 2020 16:07
[2020-04-13 17:00] LABS: BASOPHILS % (AUTO) 0.9 % (0.0-2.0); EOSINOPHILS % (AUTO) 0.8 % (0.0-3.0); HEMATOCRIT 42.5 % (37.0-47.0); HEMOGLOBIN 13.3 G/DL (12.0-16.0); MEAN CORPUSCULAR VOLUME 81 FL (80-99); MONOCYTES % (AUTO) 9.3 % (1.0-10.0); NEUTROPHILS % (AUTO) 63.1 % (45.0-75.0); PLATELET COUNT 236 K/UL (150-450); RED BLOOD COUNT 5.27 M/UL (4.20-5.40); RED CELL DISTRIBUTION WIDTH 15.9 % (11.6-14.8); WHITE BLOOD COUNT 8.4 K/UL (4.8-10.8)
--- NOTE | 2020-04-13 17:00 | NUR ---
pt is A/Ox4 ambulatory, blood and urine sent to labs, ED Nurse Note:pt. came from home with c/o that her heart beating too strong,
[2020-04-13 17:05] LABS: ANION GAP 8 mmol/L (5-15); BLOOD UREA NITROGEN 12 mg/dL (7-18); CALCIUM 8.9 MG/DL (8.5-10.1); CARBON DIOXIDE 29 MMOL/L (21-32); CHLORIDE 103 MMOL/L (98-107); CREATININE 0.8 MG/DL (0.55-1.30); POTASSIUM 3.7 MMOL/L (3.5-5.1); SODIUM 139 MMOL/L (136-145)
--- NOTE | 2020-04-13 17:06 | Diagnostic Imaging Report ---
Indication: Reason For Exam: PAIN Technique: Single AP view of the chest. Comparison: Chest radiograph dated 12/21/2019 Findings: The cardiomediastinal silhouette is within normal limits. There is no focal consolidation, pneumothorax or pleural effusion. Osseous structures demonstrate no acute abnormality. IMPRESSION: No radiographic evidence of acute cardiopulmonary process.
[2020-04-13 17:10] LABS: ALANINE AMINOTRANSFERASE 24 U/L (12-78); ALBUMIN 4.3 G/DL (3.4-5.0); ALBUMIN/GLOBULIN RATIO 1.1 (1.0-2.7); ALKALINE PHOSPHATASE 59 U/L (46-116); ASPARTATE AMINO TRANSFERASE 20 U/L (15-37); BILIRUBIN,TOTAL 0.7 MG/DL (0.2-1.0)
[2020-04-13 17:23] VITALS: BP 117/73
[2020-04-13 18:10] VITALS: BP 117/73
--- NOTE | 2020-04-13 18:10 | NUR ---
ED Nurse Note: Pt cleared by health care Provider for discharge. DC instructions was given and explained to pt and verbalized understanding of teachings. All medical deviecs such as ID band removed. Pt is AAO x4, ambulatory and left with all personal belongings.
== END 2020-04-13 18:15 | disposition home or self-care (01) ==
LOC: EMR 15:45
DX: R00.2 Palpitations (principal)
CPT/HCPCS: 36415; 71045; 80053; 81025; 84484; 85025; 85379; 93005; Z7502; 99283

== ENCOUNTER 2020-11-19 19:14 | Emergency (ER) | payer MEDICAID ==
[~2020-11-19] VITALS: Ht 152.4 cm; Wt 54.4 kg
[2020-11-19 19:26] VITALS: BP 112/69
--- NOTE | 2020-11-19 19:28 | NUR ---
prt aox3. c/o abdominal pain since 5am. denies n/v/d. denies pain on urination. v/s stable. pt in no distress. pt connected to monitor. will continue to monitor
[2020-11-19] MEDS ORDERED: Mylanta II UD 30ml ONE (19:34)
[2020-11-19] MEDS ORDERED: Lidocaine 2% Visc 15ml soln ONE (19:34)
--- NOTE | 2020-11-19 19:41 | NUR ---
18 g iv established to lac. labs draw and sent to lab. medicated per mar
[2020-11-19] MEDS ORDERED: Lidocaine 2% Visc 15ml soln ORAL ONE (19:45)
[2020-11-19] MEDS ORDERED: Mylanta II UD 30ml ORAL ONE (19:45)
--- NOTE | 2020-11-19 19:54 | Emergency Room Report ---
History of Present Illness General Chief Complaint: Abdominal Pain Source: Patient Present Illness HPI Disclaimer: Please note that this report is being documented using [employer] technology. This can lead to erroneous entry secondary to incorrect interpretation by the dictating instrument. HPI: 34-year-old female no significant past medical history presents from home secondary to epigastric abdominal pain. She states it has been present since last night. Reports mild nausea. No vomiting. No fevers. No chest pain or shortness of breath. No diarrhea. No urinary complaints. Last menstrual cycle last month. She states she was recently treated at the dentist for a tooth ache with medication and pain started after starting that medication. She is unclear what medication she started. Allergies: Coded Allergies: No Known Allergies (Unverified , 05/20/14) COVID-19 Screening Contact w/high risk pt: No Recent Travel to affected area: No Experienced COVID-19 symptoms?: No COVID-19 Testing performed C[employer]: No Patient History Last Menstrual Period: na Now: No Reviewed Nursing Documentation: PMH: Agreed; PSxH: Agreed Review of Systems All Other Systems: negative except mentioned in HPI Physical Exam Vital Signs Date Time Temp Pulse Resp B/P (MAP) Pulse Ox O2 Delivery O2 Flow Rate FiO2 11/19/20 19:21 99.1 75 14 112/69 (83) 100 Room Air Sp02 EP Interpretation: reviewed, normal General Appearance: well appearing, no apparent distress Head: normocephalic, atraumatic Eyes: bilateral eye PERRL, bilateral eye EOMI ENT: hearing grossly normal, moist mucus membranes Neck: full range of motion, supple Respiratory: lungs clear, normal breath sounds, no rhonchi, no respiratory distress, no retraction, no wheezing Cardiovascular #1: normal peripheral pulses, regular rate, rhythm, no murmur Gastrointestinal: non tender, soft, non-distended, no guarding Neurologic: alert, oriented x3, no focal defects Skin: normal color, warm/dry Medical Decision Making Diagnostic Impression: Primary Impression: Epigastric pain ER Course MDM: Differential included but not limited to gastritis, GERD, adverse reaction to medication, pancreatitis to name a few Clinical course-patient was in no acute distress on exam. She was nontoxic-appe aring. Was afebrile. Patient did find out what she was taking previously, amoxicillin and ibuprofen 800 mg. I do believe her symptoms are secondary to these medications. On reassessment she was no acute distress. Laboratory studies showed no significant abnormalities. negative. I explained the patient the importance of taking these medications with food. Will disc harge home. Zofran as needed. Follow-up with PMD and dentistry. Return precautions were given. Labs - Laboratory Tests Test 11/19/20 19:34 White Blood Count 6.1 K/UL (4.8-10.8) Red Blood Count 4.16 M/UL (4.20-5.40) L Hemoglobin 10.9 G/DL (12.0-16.0) L Hematocrit 34.3 % (37.0-47.0) L Mean Corpuscular Volume 83 FL (80-99) Mean Corpuscular Hemoglobin 26.1 PG (27.0-31.0) L Mean Corpuscular Hemoglobin Concent 31.6 G/DL (32.0-36.0) L Red Cell Distribution Width 14.3 % (11.6-14.8) Platelet Count 253 K/UL (150-450) Mean Platelet Volume 6.8 FL (6.5-10.1) Neutrophils (%) (Auto) 56.5 % (45.0-75.0) Lymphocytes (%) (Auto) 31.6 % (20.0-45.0) Monocytes (%) (Auto) 10.0 % (1.0-10.0) Eosinophils (%) (Auto) 0.9 % (0.0-3.0) Basophils (%) (Auto) 1.0 % (0.0-2.0) Urine Color Pale yellow Urine Appearance Cloudy Urine pH 8 (4.5-8.0) Urine Specific [place] 1.010 (1.005-1.035) Urine Protein Negative (NEGATIVE) Urine Glucose (UA) Negative (NEGATIVE) Urine Ketones Negative (NEGATIVE) Urine Blood Negative (NEGATIVE) Urine Nitrite Negative (NEGATIVE) Urine Bilirubin Negative (NEGATIVE) Urine Urobilinogen Normal MG/DL (0.0-1.0) Urine Leukocyte Esterase Negative (NEGATIVE) Urine HCG, Qualitative Negative (NEGATIVE) Sodium Level 144 MMOL/L (136-145) Potassium Level 3.7 MMOL/L (3.5-5.1) Chloride Level 107 MMOL/L (98-107) Carbon Dioxide Level 27 MMOL/L (21-32) Anion Gap 10 mmol/L (5-15) Blood Urea Nitrogen 12 mg/dL (7-18) Creatinine 0.9 MG/DL (0.55-1.30) Estimated Glomerular Filtration Rate > 60 mL/min (>60) Glucose Level 85 MG/DL (74-106) Calcium Level 8.6 MG/DL (8.5-10.1) Total Bilirubin 0.5 MG/DL (0.2-1.0) Aspartate Amino Transferase (AST) 14 U/L (15-37) L Alanine Aminotransferase (ALT) 17 U/L (12-78) Alkaline Phosphatase 48 U/L (46-116) Total Protein 7.3 G/DL (6.4-8.2) Albumin 3.8 G/DL (3.4-5.0) Globulin 3.5 g/dL Albumin/Globulin Ratio 1.1 (1.0-2.7) Lipase 174 U/L (73-393) Last Vital Signs Date Time Temp Pulse Resp B/P (MAP) Pulse Ox O2 Delivery O2 Flow Rate FiO2 11/19/20 19:26 75 14 Room Air 11/19/20 19:26 99.1 112/69 100 Status: improved Disposition: HOME, SELF-CARE Condition: Improved Scripts Ondansetron* (ZOFRAN*) 4 Mg Tablet 4 MG ORAL Q6H PRN for Nausea & Vomiting, #10 TAB Prov: Tristen Mason M.D. 11/19/20 Referrals: NON PHYSICIAN (PCP) Tristen Mason M.D. Nov 19, 2020 19:54
[2020-11-19 19:58] LABS: EOSINOPHILS % (AUTO) 0.9 % (0.0-3.0); HEMATOCRIT 34.3 % (37.0-47.0); HEMOGLOBIN 10.9 G/DL (12.0-16.0); LYMPHOCYTES % (AUTO) 31.6 % (20.0-45.0); MEAN CORPUSCULAR VOLUME 83 FL (80-99); NEUTROPHILS % (AUTO) 56.5 % (45.0-75.0); PLATELET COUNT 253 K/UL (150-450); RED BLOOD COUNT 4.16 M/UL (4.20-5.40); RED CELL DISTRIBUTION WIDTH 14.3 % (11.6-14.8); WHITE BLOOD COUNT 6.1 K/UL (4.8-10.8)
[2020-11-19 19:59] LABS: APPEARANCE,URINE CLOUDY; BILIRUBIN, URINE NEGATIVE (NEGATIVE); COLOR,URINE PALE YELLOW; GLUCOSE, URINE (UA) NEGATIVE (NEGATIVE); KETONES,URINE NEGATIVE (NEGATIVE); LEUKOCYTE ESTERASE ,URINE NEGATIVE (NEGATIVE); NITRITE,URINE NEGATIVE (NEGATIVE); PH,URINE 8 (4.5-8.0); PROTEIN,URINE NEGATIVE (NEGATIVE); UROBILINOGEN,URINE NORMAL MG/DL (0.0-1.0)
[2020-11-19 20:15] LABS: ANION GAP 10 mmol/L (5-15); BLOOD UREA NITROGEN 12 mg/dL (7-18); CALCIUM 8.6 MG/DL (8.5-10.1); CARBON DIOXIDE 27 MMOL/L (21-32); CHLORIDE 107 MMOL/L (98-107); CREATININE 0.9 MG/DL (0.55-1.30); POTASSIUM 3.7 MMOL/L (3.5-5.1); SODIUM 144 MMOL/L (136-145)
[2020-11-19 20:19] LABS: ALANINE AMINOTRANSFERASE 17 U/L (12-78); ALBUMIN 3.8 G/DL (3.4-5.0); ALBUMIN/GLOBULIN RATIO 1.1 (1.0-2.7); ALKALINE PHOSPHATASE 48 U/L (46-116); ASPARTATE AMINO TRANSFERASE 14 U/L (15-37); BILIRUBIN,TOTAL 0.5 MG/DL (0.2-1.0)
[2020-11-19] MEDS ORDERED: ZOFRAN4 M3 ORAL (20:35)
== END 2020-11-19 21:00 | disposition home or self-care (01) ==
LOC: EMR 19:28
DX: R10.13 Epigastric pain (principal); R11.0 Nausea
CPT/HCPCS: 36415; 80053; 81003; 81025; 83690; 85025; Z7502; 99284